=== PATIENT | male | born 1970 | race Two or more races ===

== ENCOUNTER 2017-10-02 19:42 | Emergency (ER) | payer BC, OTHER ==
[~2017-10-02] VITALS: Ht 172.7 cm; Wt 77.1 kg
--- NOTE | 2017-10-02 20:51 | NUR ---
PT BIBSELF C/O LEFT CHEST PAIN S/P USING CAR [employer] AT HOME X 2 DAYS AGO, PT STATES "HARD TO BREATH SINCE THEN" PT AOX3 RR EVEN AND UNLABORED. NO SOB NOTED. NAD NOTED. NO NVD AT THIS TIME. PT PLACED ON MONITOR WAITING FOR MD COELLO.
[2017-10-02] MEDS ORDERED: HYDROCODONE/APAP 5/325MG 1 EACH TABLET PO ONE (22:00)
[2017-10-02] MEDS ORDERED: HYDROCODONE/APAP 5/325MG 1 EACH TABLET ONE (22:16)
[2017-10-02 22:48] VITALS: BP 110/68
--- NOTE | 2017-10-02 23:16 | NUR ---
Patient discharged to home in stable condition. Written and verbal after care instructions given. Patient verbalizes understanding of instruction. ambulatory with a steady gait
== END 2017-10-02 23:13 | disposition home or self-care (01) ==
LOC: ER 19:43
DX: S28.0XXA Crushed chest, initial encounter (principal); S20.212A Contusion of left front wall of thorax, initial encounter; F17.200 Nicotine dependence, unspecified, uncomplicated; X58.XXXA Exposure to other specified factors, initial encounter; Y93.89 Activity, other specified; Y92.89 Other specified places as the place of occurrence of the external cause; Y99.8 Other external cause status
CPT/HCPCS: 71100; 99284; A4606; Z7610